=== PATIENT | female | born 1995 | race Caucasian/White ===

== ENCOUNTER 2019-02-22 12:30 | Inpatient (IN) | payer OTHER ==
[2019-02-22] MEDS: SOD CHLORIDE 0.9% 1,000 ML IV (13:06)
[2019-02-22 13:12] LABS: ABNORMAL IP MESSAGE 1; HEMATOCRIT 20.5 % (37.0-47.0); MEAN CORPUSCULAR HEMOGLOBIN 17.3 pg (29.0-33.0); MEAN CORPUSCULAR HGB CONC 26.3 g/dl (32.0-37.0); MEAN CORPUSCULAR VOLUME 65.5 fl (82.0-101.0); PLATELET COUNT 324 10^3/UL (140-415); RED BLOOD COUNT 3.13 10^6/ul (4.20-5.40); RED CELL DISTRIBUTION WIDTH 19.9 % (11.5-14.5)
[2019-02-22 13:12] LABS: WHITE BLOOD COUNT 7.7 10^3/ul (4.8-10.8)
[2019-02-22 13:21] LABS: HEMOGLOBIN 5.4 g/dl (12.0-16.0)
[2019-02-22 13:22] LABS: ADD MAN DIFF? YES; POSITIVE DIFF @See below
[2019-02-22 13:34] LABS: ANION GAP 9 (5-13); BLOOD UREA NITROGEN 13 mg/dl (7-20); CALCIUM 9.3 mg/dl (8.4-10.2); CARBON DIOXIDE 24 mmol/L (21-31); CHLORIDE 107 mmol/L (97-110); CREATININE 0.66 mg/dl (0.44-1.00); Estimated GFR > 60 mL/min (>60); GLUCOSE 96 mg/dl (70-220); POTASSIUM 3.7 mmol/L (3.5-5.1); SODIUM 140 mmol/L (135-144)
[2019-02-22 13:46] LABS: TROPONIN-I < 0.012 ng/ml (0.000-0.120)
[2019-02-22 13:58] LABS: ANISOCYTOSIS 3+ (0-0); BASOPHILS % (M) 1 % (0-2); ELLIPTO 2+ (0-0); EOSINOPHILS % (M) 2 % (0-7); HYPOCHROMASIA 3+ (0-0); LYMPHOCYTES % (M) 40 % (15-51); MICROCYTOSIS 3+ (0-0); MONOCYTE #M 0.2 10^3/ul (0.3-0.9); MONOCYTES % (M) 3 % (0-11); OVALOCYTES 2+ (0-0); PLATELET ESTIMATE NORMAL; POIKILOCYTOSIS 2+ (0-0); POLYCHROMASIA 3+ (0-0); SEGMENTED NEUTROPHILS (M) % 54 % (39-77); SMUDGE%M 2 % (0-0); TEAR DROP CELLS 1+ (0-0)
[2019-02-22] MEDS ORDERED: ONDANSETRON 4 MG INJ IV (14:00)
[2019-02-22] MEDS ORDERED: ACETAMINOPHEN 325 MG TAB PO (14:00)
[2019-02-22] MEDS: SOD CHLORIDE 0.9% 0 ML IV (16:03)
[2019-02-22] MEDS: ONDANSETRON 4 MG INJ IV (16:03)
[2019-02-22] MEDS ORDERED: IBUPROFEN 600 MG TAB PO (23:30)
[2019-02-22] MEDS: OXYCODONE/ACETAMINOPHEN (5/325) TAB PO (23:42)
[2019-02-23] MEDS ORDERED: ONDANSETRON 4 MG INJ IV
[2019-02-23 01:21] LABS: ABNORMAL IP MESSAGE 1; HEMATOCRIT 22.6 % (37.0-47.0); MEAN CORPUSCULAR HEMOGLOBIN 20.1 pg (29.0-33.0); MEAN CORPUSCULAR HGB CONC 28.8 g/dl (32.0-37.0); PLATELET COUNT 267 10^3/UL (140-415); RED BLOOD COUNT 3.23 10^6/ul (4.20-5.40); RED CELL DISTRIBUTION WIDTH 22.6 % (11.5-14.5)
[2019-02-23 01:21] LABS: WHITE BLOOD COUNT 7.5 10^3/ul (4.8-10.8)
[2019-02-23 01:26] LABS: HEMOGLOBIN 6.5 g/dl (12.0-16.0); POSITIVE DIFF @See below
[2019-02-23 01:27] LABS: ADD MAN DIFF? YES
[2019-02-23 03:03] LABS: IMMEDIATE SPIN CROSSMATCH 1 4
[2019-02-23] MEDS ORDERED: DIPHENHYDRAMINE 25 MG CAP (03:22)
[2019-02-23] MEDS: LACTATED RINGER'S 1,000 ML IV ×3 (03:30→14:45)
[2019-02-23] MEDS: ACETAMINOPHEN 325 MG TAB PO ×2 (03:34→10:59)
[2019-02-23] MEDS: DIPHENHYDRAMINE 50 MG CAP PO (03:40)
[2019-02-23 03:59] LABS: ANISOCYTOSIS 3+ (0-0); BAND NEUTROPHILS % (M) 1 % (0-4); BASOPHILS % (M) 1 % (0-2); EOSINOPHILS % (M) 1 % (0-7); LYMPHOCYTES #M 2.5 10^3/ul (0.8-2.9); LYMPHOCYTES % (M) 34 % (15-51); MICROCYTOSIS 3+ (0-0); MONOCYTES % (M) 1 % (0-11); PLATELET ESTIMATE NORMAL; POIKILOCYTOSIS 2+ (0-0); POLYCHROMASIA 3+ (0-0); SEG NEUT #M 4.7 10^3/ul (1.6-7.5); SEGMENTED NEUTROPHILS (M) % 62 % (39-77); SMUDGE%M 5 % (0-0)
[2019-02-23] MEDS: DIPHENHYDRAMINE 25 MG CAP PO (10:59)
[2019-02-23 19:04] LABS: ADD MAN DIFF? NO
[2019-02-23 19:07] LABS: ABNORMAL IP MESSAGE 1; BASOPHILS % 0.5 % (0.0-2.0); EOSINOPHILS # 0.1 10^3/ul (0.0-0.5); EOSINOPHILS % 1.4 % (0.0-7.0); HEMATOCRIT 28.3 % (37.0-47.0); HEMOGLOBIN 8.3 g/dl (12.0-16.0); LYMPHOCYTES # 2.4 10^3/ul (0.8-2.9); LYMPHOCYTES % 41.2 % (15.0-51.0); MEAN CORPUSCULAR HEMOGLOBIN 21.6 pg (29.0-33.0); MEAN CORPUSCULAR HGB CONC 29.3 g/dl (32.0-37.0); MEAN CORPUSCULAR VOLUME 73.5 fl (82.0-101.0); MONOCYTE # 0.4 10^3/ul (0.3-0.9); NEUTROPHIL # 2.9 10^3/ul (1.6-7.5); NEUTROPHILS % 49.6 % (39.0-77.0); PLATELET COUNT 242 10^3/UL (140-415); RED BLOOD COUNT 3.85 10^6/ul (4.20-5.40); RED CELL DISTRIBUTION WIDTH 22.6 % (11.5-14.5)
[2019-02-23 19:07] LABS: WHITE BLOOD COUNT 5.9 10^3/ul (4.8-10.8)
[2019-02-23 19:23] LABS: POSITIVE DIFF @See below
[2019-02-23] MEDS: OXYCODONE/ACETAMINOPHEN (5/325) TAB PO (20:13)
[2019-02-24] MEDS: LACTATED RINGER'S 1,000 ML IV ×4 (01:53→20:51)
[2019-02-24] MEDS: OXYCODONE/ACETAMINOPHEN (5/325) TAB PO ×2 (12:16→21:30)
[2019-02-25] MEDS: LACTATED RINGER'S 1,000 ML IV ×2 (06:42→17:42)
[2019-02-25] MEDS: OXYCODONE/ACETAMINOPHEN (5/325) TAB PO (11:41)
== END 2019-02-25 18:33 | disposition home or self-care (01) | DRG 812 ==
LOC: E/R 12:30 → PP2 13:47
PROC: 30233N1 Transfusion of Nonautologous Red Blood Cells into Peripheral Vein, Percutaneous Approach (ICD-10-PCS; principal; 2019-02-22)
DX: D64.9 Anemia, unspecified (principal); N93.8 Other specified abnormal uterine and vaginal bleeding; J45.909 Unspecified asthma, uncomplicated; D25.9 Leiomyoma of uterus, unspecified
CPT/HCPCS: 36415; 36430; 76856; 80048; 82962; 84484; 84703; 85025; 86850; 86900; 86901; 86920; 93005; 99291-25

== ENCOUNTER 2019-02-28 20:14 | Inpatient (IN) | payer OTHER ==
[2019-02-28 21:58] LABS: ABNORMAL IP MESSAGE 1; HEMATOCRIT 20.7 % (37.0-47.0); MEAN CORPUSCULAR HEMOGLOBIN 22.1 pg (29.0-33.0); MEAN CORPUSCULAR VOLUME 76.1 fl (82.0-101.0); PLATELET COUNT 272 10^3/UL (140-415); RED BLOOD COUNT 2.72 10^6/ul (4.20-5.40); RED CELL DISTRIBUTION WIDTH 24.8 % (11.5-14.5)
[2019-02-28 21:58] LABS: WHITE BLOOD COUNT 8.7 10^3/ul (4.8-10.8)
[2019-02-28 22:07] LABS: POSITIVE DIFF @See below
[2019-02-28] MEDS: morphine 4 MG/ML VIAL IV (22:07)
[2019-02-28] MEDS: ONDANSETRON 4 MG INJ IV (22:07)
[2019-02-28 22:10] LABS: ADD MAN DIFF? YES
[2019-02-28 22:17] LABS: ANION GAP 8 (5-13); BLOOD UREA NITROGEN 15 mg/dl (7-20); CALCIUM 8.9 mg/dl (8.4-10.2); CARBON DIOXIDE 26 mmol/L (21-31); CHLORIDE 106 mmol/L (97-110); CREATININE 0.76 mg/dl (0.44-1.00); Estimated GFR > 60 mL/min (>60); GLUCOSE 99 mg/dl (70-220); INR 1.17; POTASSIUM 4.3 mmol/L (3.5-5.1); PT RATIO 1.2; SODIUM 140 mmol/L (135-144)
[2019-02-28 22:18] LABS: PARTIAL THROMBOPLASTIN TIME 30.2 Sec (23.0-35.0)
[2019-02-28] MEDS ORDERED: ONDANSETRON 4 MG INJ IV (23:30)
[2019-03-01 08:52] LABS: HEMOGLOBIN 7.8 g/dl (12.0-16.0)
[2019-03-01 08:52] LABS: HEMATOCRIT 24.9 % (37.0-47.0)
[2019-03-01] MEDS: ACETAMINOPHEN 325 MG TAB PO (11:36)
[2019-03-01 11:59] LABS: IMMEDIATE SPIN CROSSMATCH 1 4
[2019-03-01] MEDS: morphine 4 MG/ML VIAL IV (15:32)
[2019-03-01] MEDS ORDERED: IBUPROFEN 600 MG TAB PO (21:30)
[2019-03-01] MEDS: OXYCODONE/ACETAMINOPHEN (5/325) TAB PO (21:34)
[2019-03-02] MEDS: OXYCODONE/ACETAMINOPHEN (5/325) TAB PO ×3 (09:18→19:48)
[2019-03-02] MEDS: SOD CHLORIDE 0.9% 0 ML IV (09:39)
[2019-03-02 14:12] LABS: HEMATOCRIT 31.4 % (37.0-47.0); HEMOGLOBIN 9.8 g/dl (12.0-16.0)
[2019-03-02] MEDS: MEDROXYPROGESTERONE 150 MG INJ SYG IM (18:46)
== END 2019-03-02 22:47 | disposition home or self-care (01) | DRG 761 ==
LOC: 5EC 23:22 → E/R 20:14
PROC: 30233N1 Transfusion of Nonautologous Red Blood Cells into Peripheral Vein, Percutaneous Approach (ICD-10-PCS; principal; 2019-03-01)
DX: D25.9 Leiomyoma of uterus, unspecified (principal); N92.0 Excessive and frequent menstruation with regular cycle; D64.9 Anemia, unspecified
CPT/HCPCS: 36430; 71046; 80048; 81025; 85014; 85018; 85025; 85610; 85730; 86850; 86900; 86901; 86920; 96374; 96375; 99285-25

== ENCOUNTER 2019-04-28 13:48 | Emergency (ER) | payer OTHER ==
[2019-04-28] MEDS: morphine 4 MG/ML VIAL IV (14:45)
[2019-04-28] MEDS: ONDANSETRON 4 MG INJ IV (14:45)
[2019-04-28] MEDS: SOD CHLORIDE 0.9% 1,000 ML IV (14:45)
[2019-04-28 14:51] LABS: ADD MAN DIFF? NO
[2019-04-28 14:56] LABS: WHITE BLOOD COUNT 4.4 10^3/ul (4.8-10.8)
[2019-04-28 14:56] LABS: BASOPHILS % 0.7 % (0.0-2.0); EOSINOPHILS % 0.7 % (0.0-7.0); HEMATOCRIT 31.1 % (37.0-47.0); HEMOGLOBIN 10.1 g/dl (12.0-16.0); LYMPHOCYTES # 1.4 10^3/ul (0.8-2.9); LYMPHOCYTES % 30.4 % (15.0-51.0); MEAN CORPUSCULAR HEMOGLOBIN 28.1 pg (29.0-33.0); MEAN CORPUSCULAR HGB CONC 32.5 g/dl (32.0-37.0); MEAN CORPUSCULAR VOLUME 86.4 fl (82.0-101.0); MEAN PLATELET VOLUME 10.7 fl (7.4-10.4); MONOCYTE # 0.4 10^3/ul (0.3-0.9); MONOCYTES % 7.9 % (0.0-11.0); NEUTROPHIL # 2.7 10^3/ul (1.6-7.5); NEUTROPHILS % 60.1 % (39.0-77.0); PLATELET COUNT 254 10^3/UL (140-415); RED CELL DISTRIBUTION WIDTH 18.1 % (11.5-14.5)
== END 2019-04-28 17:09 | disposition home or self-care (01) ==
LOC: FTE 13:48
DX: N93.9 Abnormal uterine and vaginal bleeding, unspecified (principal)
CPT/HCPCS: 36415; 84702; 85025; 96361; 96374; 96375; 99284-25